=== PATIENT | male | born 1930 | race Caucasian/White ===

== ENCOUNTER 2017-09-13 15:06 | Emergency (ER) | payer MEDICARE, BC ==
[~2017-09-13] VITALS: Ht 175.3 cm; Wt 78.0 kg
[~2017-09-13 15:06] MED LIST: CLARITIN10 M2 PO; TYLENOL325 MG PO; [UNRECOGNIZED DRUG - OTHER] NAS
--- NOTE | 2017-09-14 04:57 | EKG ---
[facility] [address] [facility] [place] [address] Signed Normal sinus rhythm Normal ECG No previous ECGs available Confirmed by RENE OLEA MD [id number] on 09/14/2017 4:57:47 AM Electronically Signed By: RENE OLEA MD 09/14/17 0457 PATIENT NAME: BERNARDO GUZMAN Electrocardiogram DATE OF : 30 PHYSICIAN: RENE OLEA MD REPORT #: [id number] REPORT IS CONFIDENTIAL AND NOT TO BE RELEASED WITHOUT AUTHORIZATION
[2017-09-17] MEDS ORDERED: TYLENOL325 MG PO (14:19)
[2017-09-17] MEDS ORDERED: STOOL SOFT-STI1 EACH PO (14:20)
[2017-09-17] MEDS ORDERED: ALLERGY & CONG1 EACH PO (14:21)
[2017-09-17] MEDS ORDERED: BENEFIBER1 EAC1 PO (14:21)
== END 2017-09-13 18:55 | disposition home or self-care (01) ==
LOC: ED 15:06
DX: R50.9 Fever, unspecified (principal); C61 Malignant neoplasm of prostate; Z79.899 Other long term (current) drug therapy
CPT/HCPCS: 71045; 80053; 81001; 83605; 85025; 87040; 87502; 93005; 93010; 99283